=== PATIENT | female | born 1960 | race African-American/Black ===

== ENCOUNTER 2017-12-12 11:56 | Day surgery (SDC) | payer MEDICAID ==
[~2017-12-12] VITALS: Ht 160 cm; Wt 48.6 kg
[2017-12-12] MEDS ORDERED: LIDOCAINE HCL/PF 2% 5 ML VIAL INJ ONE (12:00)
[2017-12-12] MEDS ORDERED: PROPOFOL 1% 20 ML VIAL IVP ONE (12:00)
[2017-12-12] MEDS ORDERED: SODIUM CHLORIDE 0.9% 1,000 ML IV ONE ×2 (12:13→13:00)
[2017-12-12 12:57] LABS: GLUCOMETER DEV NAME(LOC) SDS 5; GLUCOSE,POINT OF CARE 160 MG/DL (70-110)
[2017-12-12] MEDS ORDERED: HYDR25TA PO (12:58)
[2017-12-12] MEDS ORDERED: GLIP10 PO (12:58)
[2017-12-12] MEDS ORDERED: METO50 PO (12:58)
[2017-12-12] MEDS ORDERED: CLON.2 PO (12:58)
== END 2017-12-12 14:45 | disposition home or self-care (01) ==
LOC: SURGERY 11:56
PROVIDERS: ATTEND Internal Medicine Gastroenterology
DX: K57.30 Diverticulosis of large intestine without perforation or abscess without bleeding (principal); K64.8 Other hemorrhoids; E11.9 Type 2 diabetes mellitus without complications; I10 Essential (primary) hypertension; K59.00 Constipation, unspecified; F17.210 Nicotine dependence, cigarettes, uncomplicated; Z88.0 Allergy status to penicillin; Z79.899 Other long term (current) drug therapy; Z80.8 Family history of malignant neoplasm of other organs or systems; Z88.8 Allergy status to other drugs, medicaments and biological substances
CPT/HCPCS: J2704; J3490; J7030